=== PATIENT | female | born 1950 | race Caucasian/White ===

== ENCOUNTER 2024-04-07 20:18 | Emergency (ER) | payer MEDICARE ==
[~2024-04-07] VITALS: Ht 172.7 cm; Wt 75.3 kg
[2024-04-07] MEDS: PANTOPRAZOLE 40MG VIAL IV ONE (21:28)
[2024-04-07 21:38] LABS: BASO # 0.1 10^3/uL (0.0-0.2); BASO % 0.8 % (0.0-1.0); EOS # 0.4 10^3/uL (0.0-0.5); EOS % 5.8 % (0.0-3.0); HEMATOCRIT 28.2 % (36.0-47.0); HEMOGLOBIN 8.7 g/dl (12.0-15.5); LYMPH # 2.2 10^3/uL (1.5-5.0); LYMPH % 29.5 % (24.0-44.0); MEAN CORPUSCULAR HEMOGLOBIN 28.7 pg (27.0-33.0); MEAN CORPUSCULAR HGB CONC 30.9 g/dl (32.0-36.5); MEAN CORPUSCULAR VOLUME 93.1 fl (80.0-96.0); MONO # 0.7 10^3/uL (0.0-0.8); MONO % 9.2 % (2.0-8.0); NEUTROPHILS % 54.6 % (36.0-66.0); PLATELET COUNT, AUTOMATED 377 10^3/uL (150-450); RED BLOOD COUNT 3.03 10^6/uL (4.00-5.40); WHITE BLOOD COUNT 7.3 10^3/uL (4.0-10.0)
[2024-04-07 21:53] LABS: INR 1.03; PARTIAL THROMBOPLASTIN TIME 27.9 SECONDS (24.8-34.2); PROTHROMBIN TIME 13.9 SECONDS (12.5-14.5)
[2024-04-07 22:07] LABS: ALBUMIN 2.2 G/DL (3.2-5.2); ALKALINE PHOSPHATASE 88 U/L (35-104); ALT/SGPT < 9 U/L (7.0-40); AST/SGOT 9 U/L (<34); BILIRUBIN,DIRECT 0.1 MG/DL (<0.4); BILIRUBIN,TOTAL 0.3 MG/DL (0.3-1.2); BLOOD UREA NITROGEN 14 MG/DL (9-23); CALCIUM LEVEL 8.9 MG/DL (8.3-10.6); CARBON DIOXIDE LEVEL 30 MMOL/L (20-31); CHLORIDE LEVEL 104 MMOL/L (98-107); CREATININE FOR GFR 0.62 MG/DL (0.55-1.30); GLOMERULAR FILTRATION RATE > 60.0 (>39); GLUCOSE, FASTING 113 MG/DL (74-106); SODIUM LEVEL 140 MMOL/L (136-145); TOTAL PROTEIN 5.9 G/DL (5.7-8.2)
[2024-04-08] MEDS ORDERED: MORPHINE 4 MG/ML 1ML VIAL IV ONE (00:40)
[2024-04-08] MEDS ORDERED: ONDANSETRON 4MG 2ML VIAL IV PRN (10:35)
[2024-04-08] MEDS: PANTOPRAZOLE 40MG TAB (PROTONIX) PO SCH (11:17)
[2024-04-08] MEDS ORDERED: RISP-106 PO (16:26)
[2024-04-08] MEDS ORDERED: METO1TAB87 PO (16:26)
[2024-04-08] MEDS ORDERED: MELA5CAP2 PO (16:26)
[2024-04-08] MEDS ORDERED: SUCR1TA PO (16:26)
[2024-04-08] MEDS ORDERED: PANT40TA29 PO (16:26)
[2024-04-08] MEDS ORDERED: HOME MED LIST COMPLETE! XX SCH (16:30)
[2024-04-08] MEDS ORDERED: ATOR40TA75 PO (16:33)
[2024-04-08 17:30] VITALS: TEMP 97.1; O2SAT 96
[2024-04-08 17:32] VITALS: BP 133/61
== END 2024-04-08 17:39 | disposition short-term general hospital (02) ==
LOC: M ED 20:18
DX: K92.2 Gastrointestinal hemorrhage, unspecified (principal); I82.402 Acute embolism and thrombosis of unspecified deep veins of left lower extremity; I25.2 Old myocardial infarction; I48.91 Unspecified atrial fibrillation; I10 Essential (primary) hypertension; E78.5 Hyperlipidemia, unspecified; G35 Multiple sclerosis; D50.9 Iron deficiency anemia, unspecified; Z88.0 Allergy status to penicillin; Z88.8 Allergy status to other drugs, medicaments and biological substances; Z79.899 Other long term (current) drug therapy
CPT/HCPCS: 80048; 80076; 85025; 85610; 85730; 86850; 86900; 86901; 93005; 93041; 93971; 96374; 99285; J2470

== ENCOUNTER → 2024-07-24 | Outpatient (CLI) | payer MEDICARE ==
[~2024-07-24] MED LIST: ATOR40TA75 PO; MELA5CAP2 PO; MELO7.5T35; METO1TAB87 PO; OXYB-54; PANT40TA29 PO; RISP-106 PO; SUCR1TA PO
== END ==
LOC: M RAD 10:36
PROVIDERS: ATTEND Student in an Organized Health Care Education/Training Program
DX: M79.605 Pain in left leg (principal)